=== PATIENT | male | born 1985 | race Caucasian/White ===

== ENCOUNTER 2017-10-18 08:20 | Emergency (ER) | payer SELFPAY ==
[~2017-10-18] VITALS: Ht 182.9 cm; Wt 76.0 kg
[2017-10-18 08:23] VITALS: BP 140/78; PULSE 94; RESP 16; TEMP 98.5; O2SAT 98
[2017-10-18 08:38] VITALS: RESP 17; O2SAT 98
[2017-10-18 08:57] LABS: AUTOMATED NEUTROPHIL # 15.5 TH/MM3 (1.8-7.7); BASOPHIL # 0.1 TH/MM3 (0-0.2); BASOPHIL % 0.4 % (0.0-2.0); HEMATOCRIT 43.9 % (39.0-51.0); HEMOGLOBIN 15.3 GM/DL (13.0-17.0); LYMPH % 9.6 % (9.0-44.0); LYMPHOCYTE # 1.8 TH/MM3 (1.0-4.8); MEAN CELL VOLUME 91.7 FL (80.0-100.0); MEAN CORPUSCULAR HEMOGLOBIN 31.9 PG (27.0-34.0); MEAN CORPUSCULAR HGB CONC 34.7 % (32.0-36.0); MEAN PLATELET VOLUME 9.2 FL (7.0-11.0); MONO % 7.2 % (0.0-8.0); MONOCYTE # 1.3 TH/MM3 (0-0.9); NEUT % 82.8 % (16.0-70.0); PLATELET COUNT 237 TH/MM3 (150-450); RED BLOOD COUNT 4.79 MIL/MM3 (4.50-5.90); RED CELL DISTRIBUTION WIDTH 12.4 % (11.6-17.2); WHITE BLOOD COUNT 18.7 TH/MM3 (4.0-11.0)
[2017-10-18 09:26] LABS: BICARBONATE 26.8 MEQ/L (21.0-32.0); CALCIUM 9.5 MG/DL (8.5-10.1); CREATININE 0.95 MG/DL (0.60-1.30)
--- NOTE | 2017-10-18 09:27 | RADRPT ---
EXAM DATE/TIME: 10/18/2017 09:09 [place] COMPARISON: No previous studies available for comparison. INDICATIONS : Chest discomfort, vomiting for 3 days MEDICAL HISTORY : None. SURGICAL HISTORY : None. ENCOUNTER: Initial ACUITY: 3 days PAIN SCORE: 0/10 LOCATION: Bilateral chest FINDINGS: PA and lateral views of the chest demonstrates a mild focal infiltrate in the right upper lung. Other anderson the lungs are grossly clear.. The cardiomediastinal contours are unremarkable. Osseous structu res are intact. CONCLUSION: Mild small focal infiltrate in the right upper lung. Romel Ramirez MD on October 18, 2017 at 9:24 Board Certified Radiologist. This report was verified electronically.
[2017-10-18] MEDS ORDERED: ZOFR4TAB3 SL (09:47)
--- NOTE | 2017-10-18 09:47 | PD ---
HPI Chief Complaint: GI Complaint Time Seen by Provider: 09:12 Travel History International Travel<30 days: No Contact w/Intl Traveler<30days: No Traveled to known affect area: No History of Present Illness HPI 32-year-old male arrives by private vehicle due to fever, sore throat, anorexia , nausea and generalized weakness along with muscle aches and pains for about 5 days. Associated symptoms include xerostomia. Severity moderate. No modifying factor. Timing constant. PFSH Past Medical History Asthma: Yes Diminished Hearing: No Respiratory: Yes Tetanus Vaccination: > 5 Years Influenza Vaccination: No Past Surgical History Surgical History: No Previous Surgery Social History Alcohol Use: No Tobacco Use: Yes (5 cigarrettes per day) Substance Use: No Allergies-Medications (Allergen,Severity, Reaction): Coded Allergies: No Known Allergies (Verified Allergy, Unknown, 10/18/17) Reported Meds & Prescriptions Reported Meds & Active Scripts Active Zofran Odt (Ondansetron Odt) 4 Mg Tab 4 Mg SL Q8HR PRN Review of Systems Except as stated in HPI: all other systems reviewed are Neg General / Constitutional: Positive: Fever Physical Exam Narrative GENERAL: 32-year-old male well-nourished well-developed mild to moderate distress secondary to febrile illness Vital Signs Date Time Temp Pulse Resp B/P (MAP) Pulse Ox O2 Delivery O2 Flow Rate FiO2 10/18/17 08:38 17 98 Room Air 10/18/17 08:23 98.5 94 16 140/78 (98) 98 SKIN: Warm and dry. HEAD: Atraumatic. Normocephalic. EYES: Pupils equal and round. No scleral icterus. No injection or drainage. ENT: No nasal bleeding or discharge. Mucous membranes pink and moist. NECK: Trachea midline. No JVD. CARDIOVASCULAR: Regular rhythm. Tachycardia. RESPIRATORY: No accessory muscle use. Clear to auscultation. Breath sounds equal bilaterally. GASTROINTESTINAL: Abdomen soft, non-tender, nondistended. Hepatic and splenic margins not palpable. MUSCULOSKELETAL: Extremities without clubbing, cyanosis, or edema. No obvious deformities. NEUROLOGICAL: Awake and alert. No obvious cranial nerve deficits. Motor grossly within normal limits. Five out of 5 muscle strength in the arms and legs. Normal speech. PSYCHIATRIC: Appropriate mood and affect; insight and judgment normal. Data Data Last Documented VS Vital Signs Date Time Temp Pulse Resp B/P (MAP) Pulse Ox O2 Delivery O2 Flow Rate FiO2 10/18/17 11:33 98.3 89 17 119/66 (83) 97 Room Air Orders Orders Complete Blood Count With Diff (10/18/17 08:35) Basic Metabolic Panel (Bmp) (10/18/17 08:35) Iv Access Insert/Monitor (10/18/17 08:35) Ecg Monitoring (10/18/17 08:35) Oximetry (10/18/17 08:35) Chest, Pa & Lat (10/18/17 08:40) Sodium Chlor 0.9% 1000 Ml Inj (Ns 1000 M (10/18/17 10:00) Sodium Chlor 0.9% 1000 Ml Inj (Ns 1000 M (10/18/17 10:00) Promethazine (Phenergan) (10/18/17 10:00) Ketorolac Inj (Toradol Inj) (10/18/17 10:00) Prochlorperazine Inj (Compazine Inj) (10/18/17 10:45) Labs Laboratory Tests Test 10/18/17 08:00 White Blood Count 18.7 TH/MM3 Red Blood Count 4.79 MIL/MM3 Hemoglobin 15.3 GM/DL Hematocrit 43.9 % Mean Corpuscular Volume 91.7 FL Mean Corpuscular Hemoglobin 31.9 PG Mean Corpuscular Hemoglobin Concent 34.7 % Red Cell Distribution Width 12.4 % Platelet Count 237 TH/MM3 Mean Platelet Volume 9.2 FL Neutrophils (%) (Auto) 82.8 % Lymphocytes (%) (Auto) 9.6 % Monocytes (%) (Auto) 7.2 % Eosinophils (%) (Auto) 0.0 % Basophils (%) (Auto) 0.4 % Neutrophils # (Auto) 15.5 TH/MM3 Lymphocytes # (Auto) 1.8 TH/MM3 Monocytes # (Auto) 1.3 TH/MM3 Eosinophils # (Auto) 0.0 TH/MM3 Basophils # (Auto) 0.1 TH/MM3 CBC Comment DIFF FINAL Differential Comment Blood Urea Nitrogen 25 MG/DL Creatinine 0.95 MG/DL Random Glucose 245 MG/DL Calcium Level 9.5 MG/DL Sodium Level 130 MEQ/L Potassium Level 3.6 MEQ/L Chloride Level 92 MEQ/L Carbon Dioxide Level 26.8 MEQ/L Anion Gap 11 MEQ/L Estimat Glomerular Filtration Rate 93 ML/MIN MDM Medical Decision Making Medical Screen Exam Complete: Yes Emergency Medical Condition: Yes Medical Record Reviewed: Yes Differential Diagnosis Influenza, gastroenteritis, obstruction, electrolyte imbalances Narrative Course CBC & BMP Diagram 10/18/17 08:00 Calcium Level 9.5 Patient received IV fluids. He tolerated 32 ounces of Gatorade without difficulty. Patient reassessed at 9 AM and again at 9:45 AM. Vital signs are normal however patient is dehydrated. Will continue volume resuscitation for a total of 3 L saline as well as provide a dose of Phenergan and Toradol. Elevated blood glucose is of concern. We will repeat a fingerstick glucose after IV hydration. Diagnosis Primary Impression: Nausea & vomiting Qualified Codes: R11.2 - Nausea with vomiting, unspecified Additional Impressions: Febrile illness Hyperglycemia Referrals: [facility] call for appointment Blood glucose 254 at time of ED visit. Med/Other Pt SpecificInfo: Prescription(s) given Scripts Ondansetron Odt (Zofran Odt) 4 Mg Tab 4 MG SL Q8HR Y for Nausea/Vomiting, #12 TAB 0 Refills Prov: Sujit Butler MD 10/18/17 Disposition: 01 DISCHARGE HOME Condition: Stable Sujit Butler MD Oct 18, 2017 09:47
[2017-10-18] MEDS ORDERED: SODIUM CHLOR 0.9% 1000 ML INJ 1,000 ML IV ONE ×2 (10:00)
[2017-10-18] MEDS ORDERED: KETOROLAC TROMETHAMINE 30 MG/ML (IVP) VIAL IV PUSH ONE (10:00)
[2017-10-18] MEDS ORDERED: PROMETHAZINE HCL 25 MG TAB PO ONE (10:00)
[2017-10-18] MEDS ORDERED: PROCHLORPERAZINE INJ 10 MG/2 ML VIAL IV PUSH ONE (10:45)
[2017-10-18 11:33] VITALS: BP 119/66; PULSE 89; RESP 17; TEMP 98.3; O2SAT 97
[2017-10-18 11:50] VITALS: BP 118/70; TEMP 97.8
== END 2017-10-18 11:50 | disposition home or self-care (01) ==
LOC: NEPC 08:20
DX: R11.2 Nausea with vomiting, unspecified (principal); R50.9 Fever, unspecified; R73.9 Hyperglycemia, unspecified; R91.8 Other nonspecific abnormal finding of lung field; J45.909 Unspecified asthma, uncomplicated; F17.210 Nicotine dependence, cigarettes, uncomplicated
CPT/HCPCS: 71046; 80048; 85025; 96361; 96374; 96375; 99284; J0780; J1885; J7030; Q0169